=== PATIENT | male | born 1965 | race Caucasian/White ===

== ENCOUNTER 2025-02-16 11:56 | Inpatient (IN) | payer MEDICAID, OTHER ==
[~2025-02-16] VITALS: Ht 175.3 cm; Wt 115.9 kg
[2025-02-16 13:26] LABS: COVID AG,FIA SOURCE NASAL SWAB
[2025-02-16 13:30] LABS: APPEARANCE,URINE CLEAR (CLEAR); GLUCOSE, URINE (UA) NEGATIVE (NEGATIVE); LEUKOCYTE ESTERASE ,URINE NEGATIVE (NEGATIVE); NITRATE,URINE NEGATIVE (NEGATIVE); OCCULT BLOOD,URINE NEGATIVE (NEGATIVE); PH,URINE DRUG SCREEN 5.5 (5.0-8.0); SPECIFIC GRAVITIY, URINE 1.025 (1.003-1.030)
[2025-02-16 13:31] LABS: PLATELET COUNT (AUTO) 316 K/uL (150-450); RED BLOOD CELL COUNT(AUTO) 4.91 MIL/uL (4.50-5.90); RED CELL DISTRIBUTION WIDTH 14.4 % (11.5-14.5); WHITE BLOOD COUNT (AUTO) 9.2 K/uL (4.5-11.0)
[2025-02-16 13:35] LABS: CALCIUM, TOTAL 9.7 mg/dL (8.8-10.5); CREATININE 1.70 mg/dL (0.60-1.30); GLOMERULAR FILTR. RATE CALC 42 mL/min (>60); GLUCOSE,RANDOM 112 mg/dL (70-110); SODIUM SERUM 137 mmol/L (136-145); UREA NITROGEN, BLOOD 46 mg/dL (7-18)
[2025-02-16 13:37] LABS: ALCOHOL, URINE DRUG SCREEN NEGATIVE (NEGATIVE); AMPHET/METH SCREEN,URINE NEGATIVE (NEGATIVE); BARBITURATE SCREEN, URINE NEGATIVE (NEGATIVE); CANNABINOID SCREEN,URINE NEGATIVE (NEGATIVE); COCAINE SCREEN,URINE NEGATIVE (NEGATIVE); METHADONE SCREEN, URINE NEGATIVE (NEGATIVE)
[2025-02-16 13:41] LABS: ALCOHOL, BLOOD (SERUM) < 3 mg/dL (0-10)
[2025-02-16 13:43] LABS: TROPONIN I-HIGH SENSITIVITY 11 ng/L (<76)
[2025-02-16 13:47] LABS: SARS-COV2 (COVID) ANTIGEN,FIA Negative (Negative)
[2025-02-17 00:18] LABS: PLATELET COUNT (AUTO) 304 K/uL (150-450); RED BLOOD CELL COUNT(AUTO) 4.75 MIL/uL (4.50-5.90); RED CELL DISTRIBUTION WIDTH 14.5 % (11.5-14.5); WHITE BLOOD COUNT (AUTO) 9.6 K/uL (4.5-11.0)
[2025-02-17] MEDS: ZOLPIDEM TARTRATE 10 MG TABLET PO PRN (00:23)
[2025-02-17 00:38] LABS: ASPARTATE AMINOTRANSFERASE 19.0 U/L (15-37); CALCIUM, TOTAL 9.3 mg/dL (8.8-10.5); CHOL/HDL RATIO 2.9 (4.2-7.3); CREATININE 1.55 mg/dL (0.60-1.30); GLOMERULAR FILTR. RATE CALC 46.0 mL/min (>60); GLUCOSE,RANDOM 114.0 mg/dL (70-110); LDL CHOL (CALC.) 47.0 mg/dL (0-130); SODIUM SERUM 138.0 mmol/L (136-145); TOTAL PROTEIN, SERUM 7.6 g/dL (6.4-8.2); UREA NITROGEN, BLOOD 42.0 mg/dL (7-18)
[2025-02-17 20:30] VITALS: BP 160/74; PULSE 80; RESP 18; TEMP 98.7; O2SAT 97
[2025-02-18] MEDS ORDERED: ONDANSETRON 4 MG TABLET PO PRN (07:00)
[2025-02-18] MEDS ORDERED: ALBUTEROL SULFATE HFA 90 MCG/PUFF 8 GM INHALER IH PRN (07:00)
[2025-02-18] MEDS ORDERED: MAGNESIUM HYDROXIDE SUSPENSION 30 ML UDCUP PO PRN (07:00)
[2025-02-18] MEDS ORDERED: PETROLATUM,WHITE 28 GM JELLY TP PRN (07:00)
[2025-02-18] MEDS ORDERED: NICOTINE 14 MG/24 HOUR PATCH TD PRN (07:00)
[2025-02-18] MEDS ORDERED: DOCUSATE SODIUM 100 MG CAPSULE PO PRN (07:00)
[2025-02-18] MEDS ORDERED: GuaiFENesin/D-METHORPHAN [SUGAR-FREE] 200-20MG/10 ML SYRUP UDCUP PO PRN (07:00)
[2025-02-18] MEDS ORDERED: MAG HYDROX/ALUMINUM HYD/SIMETH ES 30 ML SUSPENSION UDCUP PO PRN (07:00)
[2025-02-18 08:20] VITALS: BP 180/100; PULSE 88; RESP 18
[2025-02-18] MEDS: ESCITALOPRAM OXALATE 10 MG TABLET PO SCH (13:55)
[2025-02-18 21:00] VITALS: BP 106/91; PULSE 72; RESP 18; TEMP 98; O2SAT 98
[2025-02-18] MEDS: IBUPROFEN 400 MG TABLET PO PRN (21:00)
[2025-02-18 22:56] VITALS: RESP 18
[2025-02-19 10:59] VITALS: BP 155/83; PULSE 70; RESP 19; TEMP 97.9; O2SAT 96
[2025-02-19 23:00] VITALS: BP 150/74; PULSE 84; RESP 18; TEMP 97.6; O2SAT 96
[2025-02-20 19:07] VITALS: BP 152/98; PULSE 68; RESP 16; TEMP 97.4; O2SAT 95
[2025-02-20 21:04] LABS: CALCIUM, TOTAL 9.1 mg/dL (8.8-10.5); CREATININE 1.33 mg/dL (0.60-1.30); GLOMERULAR FILTR. RATE CALC 55.0 mL/min (>60); GLUCOSE,RANDOM 139.0 mg/dL (70-110); SODIUM SERUM 134.0 mmol/L (136-145); UREA NITROGEN, BLOOD 30.0 mg/dL (7-18)
[2025-02-20 22:22] VITALS: BP 156/81; PULSE 18; RESP 18; TEMP 98.1; O2SAT 96
[2025-02-21 12:21] VITALS: BP 146/89; PULSE 78; RESP 16; TEMP 97.3; O2SAT 98
[2025-02-21 21:31] VITALS: BP 145/84; PULSE 70; RESP 18; TEMP 98; O2SAT 97
[2025-02-22] MEDS: ACETAMINOPHEN 325 MG TABLET PO PRN (03:03)
[2025-02-22 08:35] VITALS: BP 187/100; PULSE 65; RESP 17; TEMP 98; O2SAT 96
[2025-02-22 11:40] VITALS: BP 145/86; PULSE 79
[2025-02-22 22:39] VITALS: BP 169/54; PULSE 82; RESP 18; TEMP 97.8; O2SAT 97
[2025-02-23 08:05] VITALS: BP 180/100; PULSE 66; RESP 18; O2SAT 97
[2025-02-23 11:10] VITALS: BP 169/89; PULSE 63
[2025-02-23 16:00] VITALS: BP 150/71; PULSE 55
[2025-02-23 22:51] VITALS: BP 166/112; PULSE 69; RESP 18; TEMP 98.7; O2SAT 91
[2025-02-23 23:22] VITALS: BP 146/72; PULSE 58; RESP 18; TEMP 97.8; O2SAT 97
[2025-02-24 02:50] VITALS: BP 146/68; PULSE 62; RESP 18; TEMP 97.9; O2SAT 95
[2025-02-24 03:50] VITALS: RESP 18
[2025-02-24 10:47] VITALS: BP 151/83; RESP 16; TEMP 98.5; O2SAT 98
[2025-02-24 21:54] VITALS: BP 157/76; PULSE 71; RESP 18; O2SAT 98
[2025-02-25 01:05] VITALS: BP 154/76; PULSE 66; RESP 18; O2SAT 96
[2025-02-25 08:38] VITALS: BP 176/101; PULSE 68; RESP 18; TEMP 97.8; O2SAT 98
[2025-02-25] MEDS: ESCITALOPRAM OXALATE 10 MG TABLET PO SCH (10:49)
[2025-02-25 10:57] LABS: COVID AG,FIA SOURCE NASAL SWAB
[2025-02-25 11:25] LABS: SARS-COV2 (COVID) ANTIGEN,FIA Negative (Negative)
[2025-02-25 12:30] VITALS: BP 140/60; PULSE 55
[2025-02-25 21:18] VITALS: BP 160/75; PULSE 60; RESP 18; TEMP 98.6; O2SAT 98
[2025-02-26 14:00] VITALS: BP 145/89; PULSE 68; RESP 18; TEMP 98.2; O2SAT 98
[2025-02-26 22:47] VITALS: BP 141/88; PULSE 61; RESP 18; TEMP 97.6; O2SAT 98
[2025-02-27 11:13] VITALS: BP 147/92; PULSE 65; RESP 19; TEMP 98.1; O2SAT 95
[2025-02-27 21:39] VITALS: BP 123/61; PULSE 70; RESP 18; O2SAT 97
[2025-02-28] VITALS (8 sets, daily range): BP systolic 118–138; BP diastolic 64–97; PULSE 61–71; RESP 18–19; TEMP 97.3–98.6; O2SAT 95–100
[2025-03-01 07:13] LABS: ASPARTATE AMINOTRANSFERASE 15 U/L (15-37); CALCIUM, TOTAL 9.2 mg/dL (8.8-10.5); CREATININE 1.13 mg/dL (0.60-1.30); GLOMERULAR FILTR. RATE CALC > 60 mL/min (>60); GLUCOSE,RANDOM 95 mg/dL (70-110); PHOSPHORUS 3.8 mg/dL (2.5-4.9); SODIUM SERUM 143 mmol/L (136-145); TOTAL PROTEIN, SERUM 6.7 g/dL (6.4-8.2); UREA NITROGEN, BLOOD 21 mg/dL (7-18)
[2025-03-01 08:07] LABS: CHOL/HDL RATIO 3.9 (4.2-7.3); LDL CHOL (CALC.) 63.0 mg/dL (0-130)
[2025-03-01 08:30] VITALS: BP 173/119; PULSE 77; RESP 18; TEMP 98.2; O2SAT 98
[2025-03-01 22:06] VITALS: BP 160/90; PULSE 67; RESP 18; TEMP 97.4; O2SAT 97
[2025-03-02 09:56] VITALS: BP 128/78; PULSE 61; RESP 20; TEMP 98.1; O2SAT 99
[2025-03-02 21:50] VITALS: BP 145/84; PULSE 67; RESP 18; TEMP 98.1; O2SAT 95
[2025-03-03 08:35] VITALS: BP 135/89; PULSE 72; RESP 18; TEMP 97.3; O2SAT 100
[2025-03-03 23:22] VITALS: BP 153/86; PULSE 65; RESP 18; TEMP 98.1; O2SAT 97
[2025-03-04 15:24] VITALS: BP 140/70; PULSE 68; RESP 18; TEMP 98.1; O2SAT 98
[2025-03-04 20:41] VITALS: BP 140/76; PULSE 65; RESP 18; TEMP 97.7; O2SAT 98
[2025-03-05 09:28] VITALS: BP 150/93; PULSE 73; RESP 18; TEMP 97.5; O2SAT 97
[2025-03-05 20:35] VITALS: BP 159/79; PULSE 60; RESP 18; TEMP 97.8; O2SAT 100
[2025-03-06 09:00] VITALS: BP 153/80; PULSE 85; RESP 18; TEMP 97.9; O2SAT 96
[2025-03-06 20:00] VITALS: BP 144/98; PULSE 68; RESP 18; TEMP 97.5; O2SAT 100
[2025-03-07 08:00] VITALS: BP 124/68; PULSE 65; RESP 18; TEMP 98; O2SAT 96
[2025-03-07 22:38] VITALS: BP 143/74; PULSE 67; RESP 18; TEMP 98.1; O2SAT 98
[2025-03-08 10:28] VITALS: BP 187/85; PULSE 87; RESP 20; TEMP 98.4; O2SAT 96
[2025-03-08 22:12] VITALS: BP 159/73; PULSE 60; RESP 16; TEMP 97; O2SAT 99
[2025-03-09 10:08] VITALS: BP 158/105; PULSE 71; RESP 18; TEMP 96.2; O2SAT 96
[2025-03-09 20:00] VITALS: BP 129/91; PULSE 78; RESP 18; O2SAT 96
[2025-03-10 15:04] VITALS: BP 151/74; PULSE 63; RESP 16; TEMP 98.1; O2SAT 96
[2025-03-10 22:23] VITALS: RESP 18
[2025-03-11 09:33] VITALS: BP 155/69; PULSE 66; RESP 18; TEMP 98.4; O2SAT 98
[2025-03-11 20:00] VITALS: BP 142/87; PULSE 75; RESP 18; TEMP 98.2; O2SAT 98
[2025-03-12 09:10] VITALS: BP 178/97; PULSE 67; RESP 17; TEMP 98.6; O2SAT 94
[2025-03-12 12:09] VITALS: BP 142/81; PULSE 71; RESP 18; TEMP 98.6; O2SAT 95
[2025-03-12 13:09] VITALS: BP 141/81; PULSE 87; RESP 17; TEMP 98.2; O2SAT 97
[2025-03-12 21:00] VITALS: BP 151/65; PULSE 60; RESP 18; TEMP 98.6; O2SAT 97
[2025-03-13 10:56] VITALS: BP 172/76; PULSE 70; RESP 18; TEMP 97.9; O2SAT 99
[2025-03-13 13:35] VITALS: BP 155/65; PULSE 77; RESP 18; O2SAT 98
[2025-03-13] MEDS: TraZODone HCL 150 MG TABLET PO SCH (21:07)
[2025-03-13 22:13] VITALS: BP 133/59; PULSE 60; RESP 17; TEMP 98.2; O2SAT 97
[2025-03-14 08:54] VITALS: BP 158/85; PULSE 90; RESP 17; TEMP 98.1; O2SAT 98
[2025-03-14 09:54] VITALS: BP 138/72; PULSE 78; RESP 17; TEMP 98
[2025-03-14 10:35] VITALS: BP 158/85; PULSE 90; RESP 17; TEMP 98.1; O2SAT 98
[2025-03-14 22:10] VITALS: BP 158/80; PULSE 62; RESP 18; TEMP 98.1; O2SAT 97
[2025-03-15 05:25] VITALS: BP 147/82; PULSE 75; RESP 18; TEMP 98; O2SAT 98
[2025-03-15 09:58] VITALS: BP 164/77; PULSE 56; RESP 18; TEMP 98; O2SAT 98
[2025-03-15 22:20] VITALS: BP 128/75; PULSE 61; RESP 18; TEMP 98.1; O2SAT 99
[2025-03-16 09:37] VITALS: BP 166/85; PULSE 90; RESP 17; TEMP 97.7; O2SAT 95
[2025-03-16 10:02] LABS: ASPARTATE AMINOTRANSFERASE 16 U/L (15-37); CALCIUM, TOTAL 9.0 mg/dL (8.8-10.5); CREATININE 1.14 mg/dL (0.60-1.30); GLOMERULAR FILTR. RATE CALC > 60 mL/min (>60); GLUCOSE,RANDOM 131 mg/dL (70-110); SODIUM SERUM 139 mmol/L (136-145); TOTAL PROTEIN, SERUM 7.5 g/dL (6.4-8.2); UREA NITROGEN, BLOOD 18 mg/dL (7-18)
[2025-03-16 20:00] VITALS: BP 139/94; PULSE 68; RESP 18; TEMP 98.9; O2SAT 97
[2025-03-17 08:45] VITALS: BP 156/75; PULSE 63; RESP 16; TEMP 97.8; O2SAT 100
[2025-03-17 20:10] VITALS: BP 140/93; PULSE 69; RESP 18; TEMP 97.5; O2SAT 98
[2025-03-18 11:36] VITALS: BP 149/87; PULSE 63; RESP 18; TEMP 98; O2SAT 98
[2025-03-18 20:15] VITALS: BP 139/69; PULSE 84; RESP 19; TEMP 97.4; O2SAT 97
[2025-03-19 08:56] VITALS: BP 137/72; PULSE 66; RESP 16; TEMP 98.2; O2SAT 96
[2025-03-19] MEDS: FUROSEMIDE 20 MG TABLET PO ONE (15:23)
[2025-03-19 20:41] VITALS: BP 149/77; PULSE 69; RESP 18; TEMP 98.1; O2SAT 98
[2025-03-20 09:06] VITALS: BP 142/70; PULSE 65; RESP 18; TEMP 97.8; O2SAT 97
[2025-03-20 22:11] VITALS: BP 145/86; PULSE 65; RESP 18; TEMP 98.8; O2SAT 95
[2025-03-21 08:58] VITALS: BP 136/90; PULSE 53; RESP 18; TEMP 97.5; O2SAT 96
[2025-03-21 21:55] VITALS: BP 146/76; PULSE 66; RESP 20; TEMP 98.3; O2SAT 96
[2025-03-22 10:27] VITALS: BP 126/90; PULSE 80; RESP 17; TEMP 97.7; O2SAT 100
[2025-03-22 11:31] VITALS: BP 146/77; PULSE 64; RESP 18; TEMP 98.3; O2SAT 99
[2025-03-22 12:31] VITALS: BP 134/86; PULSE 70; RESP 17; TEMP 98.4; O2SAT 98
[2025-03-22 20:00] VITALS: BP 148/88; PULSE 71; RESP 18; TEMP 98; O2SAT 98
[2025-03-23 09:56] VITALS: BP 147/73; PULSE 63; RESP 18; TEMP 97; O2SAT 97
[2025-03-23 22:21] VITALS: BP 150/61; PULSE 60; RESP 18; TEMP 98.8; O2SAT 97
[2025-03-24 04:40] VITALS: BP 140/83; PULSE 72; RESP 20; TEMP 97.9; O2SAT 98
[2025-03-24 05:45] VITALS: RESP 18
[2025-03-24 10:29] VITALS: BP 168/87; PULSE 62; RESP 18; TEMP 97.8; O2SAT 96
[2025-03-24 20:05] VITALS: BP 151/70; PULSE 72; RESP 18; TEMP 98.7; O2SAT 97
[2025-03-25 06:23] VITALS: BP 150/74; RESP 18; O2SAT 98
[2025-03-25 07:23] VITALS: RESP 18
[2025-03-25 12:14] VITALS: BP 132/86; PULSE 60; RESP 17; TEMP 98.4; O2SAT 97
[2025-03-25 16:01] VITALS: PULSE 69
[2025-03-25 17:10] VITALS: BP 150/77; PULSE 67; RESP 17; TEMP 97.9; O2SAT 97
[2025-03-25 22:22] VITALS: BP 150/89; PULSE 68; RESP 19; TEMP 98; O2SAT 97
[2025-03-26 09:41] VITALS: BP 156/84; PULSE 64; RESP 18; TEMP 97.3
[2025-03-26 18:44] VITALS: BP 142/85; PULSE 70
[2025-03-26 21:00] VITALS: BP 141/76; PULSE 76; RESP 19; TEMP 97.8; O2SAT 98
[2025-03-27 08:55] VITALS: BP 131/74; PULSE 62; RESP 18; TEMP 97.7
[2025-03-27 21:46] VITALS: BP 145/74; PULSE 77; RESP 18; TEMP 97.8
[2025-03-28 10:28] VITALS: BP 118/85; PULSE 63; RESP 18; TEMP 97.2; O2SAT 97
[2025-03-28 16:58] VITALS: BP 144/76; PULSE 71
[2025-03-28 21:26] VITALS: BP 154/79; PULSE 72; RESP 19; TEMP 98.2; O2SAT 96
[2025-03-29 09:37] VITALS: BP 131/59; PULSE 55; RESP 15; TEMP 97.5; O2SAT 98
[2025-03-29 17:44] VITALS: BP 137/71; PULSE 66
[2025-03-29 20:00] VITALS: BP 136/68; PULSE 68; RESP 18; TEMP 97.5; O2SAT 100
[2025-03-30 09:35] VITALS: BP 153/82; PULSE 68; RESP 18; TEMP 97.6; O2SAT 96
[2025-03-30 17:35] VITALS: BP 138/75; PULSE 69
[2025-03-30 21:24] VITALS: BP 118/88; PULSE 69; RESP 17; TEMP 98.1; O2SAT 98
[2025-03-31 09:55] VITALS: BP 152/79; PULSE 67; RESP 17; TEMP 97.9; O2SAT 97
[2025-03-31 18:15] VITALS: BP 135/78; PULSE 69
[2025-03-31 20:23] VITALS: BP 141/74; PULSE 68; RESP 18; TEMP 98.4; O2SAT 98
[2025-04-01 06:49] LABS: PLATELET COUNT (AUTO) 249 K/uL (150-450); RED BLOOD CELL COUNT(AUTO) 4.53 MIL/uL (4.50-5.90); RED CELL DISTRIBUTION WIDTH 15.0 % (11.5-14.5); WHITE BLOOD COUNT (AUTO) 10.2 K/uL (4.5-11.0)
[2025-04-01 07:13] LABS: CALCIUM, TOTAL 9.0 mg/dL (8.8-10.5); CREATININE 1.01 mg/dL (0.60-1.30); GLOMERULAR FILTR. RATE CALC > 60 mL/min (>60); GLUCOSE,RANDOM 103 mg/dL (70-110); SODIUM SERUM 138 mmol/L (136-145); UREA NITROGEN, BLOOD 20 mg/dL (7-18)
[2025-04-01 09:38] VITALS: BP 130/81; PULSE 67; RESP 18; TEMP 98.2; O2SAT 96
[2025-04-01] MEDS: LOPERAMIDE HCL 2 MG CAPSULE PO PRN (09:52)
[2025-04-01 18:03] VITALS: BP 160/91; PULSE 79; RESP 18; O2SAT 98
[2025-04-01 20:00] VITALS: BP 148/80; PULSE 80; RESP 18; TEMP 97.5; O2SAT 99
[2025-04-02 12:42] VITALS: BP 146/68; PULSE 68; RESP 17; TEMP 98.4; O2SAT 96
[2025-04-02 21:23] VITALS: BP 142/91; PULSE 72; RESP 18; TEMP 98.2; O2SAT 96
[2025-04-03 09:32] VITALS: BP 138/89; PULSE 70; RESP 18; TEMP 98.1; O2SAT 97
[2025-04-03 21:55] VITALS: BP 125/76; PULSE 69; RESP 18; TEMP 99.3; O2SAT 97
[2025-04-04 13:05] VITALS: BP 146/76; PULSE 72; RESP 18; TEMP 97.9; O2SAT 96
[2025-04-04 21:33] VITALS: BP 120/88; PULSE 85; RESP 18; TEMP 98; O2SAT 100
[2025-04-05 10:56] VITALS: BP 137/77; PULSE 70; RESP 18; TEMP 97.9; O2SAT 97
[2025-04-05 17:20] VITALS: BP 150/82; RESP 18
[2025-04-05 20:57] VITALS: BP 139/86; PULSE 81; RESP 20; TEMP 98.1
[2025-04-06 10:01] VITALS: BP 155/72; PULSE 75; RESP 18; TEMP 97; O2SAT 95
[2025-04-06 22:24] VITALS: BP 166/92; PULSE 64; RESP 18; TEMP 98.6; O2SAT 99
[2025-04-07 09:16] VITALS: BP 146/74; PULSE 65; RESP 18; TEMP 98.7; O2SAT 97
[2025-04-07 20:10] VITALS: BP 163/78; PULSE 70; RESP 18; TEMP 98.9; O2SAT 100
[2025-04-08 09:03] VITALS: BP 146/79; PULSE 71; RESP 18; TEMP 97.2; O2SAT 100
[2025-04-08] MEDS ORDERED: ESCI-8 PO (12:49)
[2025-04-08] MEDS ORDERED: TRAZ150T80 PO (12:50)
[2025-04-08] MEDS ORDERED: AMLO-258 PO (12:52)
== END 2025-04-08 15:30 | disposition home or self-care (01) | DRG 751 ==
LOC: EMS 12:11 → 3EI 02-17 20:49
PROVIDERS: ADMIT Psychiatry & Neurology Child & Adolescent Psychiatry; ATTEND Psychiatry & Neurology Child & Adolescent Psychiatry
PROC: GZHZZZZ Group Psychotherapy (ICD-10-PCS; principal; 2025-02-18)
PROC: GZ56ZZZ Individual Psychotherapy, Supportive (ICD-10-PCS; 2025-02-19)
PROC: GZ58ZZZ Individual Psychotherapy, Cognitive-Behavioral (ICD-10-PCS; 2025-02-19)
PROC: GZ52ZZZ Individual Psychotherapy, Cognitive (ICD-10-PCS; 2025-02-22)
DX: F33.2 Major depressive disorder, recurrent severe without psychotic features (principal); N17.9 Acute kidney failure, unspecified; I50.9 Heart failure, unspecified; R45.851 Suicidal ideations; I69.351 Hemiplegia and hemiparesis following cerebral infarction affecting right dominant side; I11.0 Hypertensive heart disease with heart failure; Z20.822 Contact with and (suspected) exposure to COVID-19; F15.90 Other stimulant use, unspecified, uncomplicated; E78.00 Pure hypercholesterolemia, unspecified; R73.03 Prediabetes; I89.0 Lymphedema, not elsewhere classified; G47.00 Insomnia, unspecified; I69.322 Dysarthria following cerebral infarction; Z87.891 Personal history of nicotine dependence
CPT/HCPCS: 70450; 72125; 80048; 80053; 80061; 80307; 81003; 83036; 83735; 83880; 84100; 84436; 84439; 84443; 84484; 85025; 87081; 93005; 97110; 97112; 97116; 97162; 97167; 97530; 97535; 99285; G0480